=== PATIENT | female | born 1990 | race Caucasian/White ===

== ENCOUNTER 2020-06-23 15:57 | Emergency (ER) | payer OTHER ==
[~2020-06-23] VITALS: Ht 180.3 cm; Wt 95.2 kg
[~2020-06-23 15:57] MED LIST: Bactrim Ds Tab1 EACH PO; CEPH500 PO
[2020-06-23] MEDS ORDERED: [UNRECOGNIZED DRUG - OTHER] (16:03)
[2020-06-23] MEDS ORDERED: Bactrim Ds Tab1 EACH PO (17:45)
== END 2020-06-23 18:17 | disposition home or self-care (01) ==
LOC: ER 15:57
DX: L02.415 Cutaneous abscess of right lower limb (principal)
CPT/HCPCS: 10060; 99282-25

== ENCOUNTER 2021-03-13 10:37 | Emergency (ER) | payer OTHER ==
[~2021-03-13] VITALS: Ht 177.8 cm; Wt 99.8 kg
[~2021-03-13 10:37] MED LIST changes: +[UNRECOGNIZED DRUG - OTHER]
[2021-03-13] MEDS ORDERED: SULTRIDS PO (12:16)
[2021-03-13] MEDS ORDERED: CEPH500 PO (12:16)
== END 2021-03-13 12:33 | disposition home or self-care (01) ==
LOC: ER 10:37
DX: L02.415 Cutaneous abscess of right lower limb (principal)
CPT/HCPCS: 10061; 99283-25

== ENCOUNTER 2021-03-21 14:18 | Emergency (ER) | payer OTHER ==
[~2021-03-21] VITALS: Ht 180.3 cm; Wt 99.8 kg
[~2021-03-21 14:18] MED LIST changes: +SULTRIDS PO
[2021-03-21] MEDS ORDERED: PROM25 PO (16:01)
[2021-03-21] MEDS ORDERED: BENADRYL25 MG PO (16:01)
== END 2021-03-21 16:15 | disposition home or self-care (01) ==
LOC: ER 14:18
DX: F11.13 Opioid abuse with withdrawal (principal); F17.210 Nicotine dependence, cigarettes, uncomplicated
CPT/HCPCS: 96372; 99283; A9270; J1200; J1630; J2550